=== PATIENT | male | born 1995 | race African-American/Black ===

== ENCOUNTER 2019-09-16 21:46 | Emergency (ER) | payer OTHER ==
[2019-09-16 22:04] VITALS: BP 132/82
--- NOTE | 2019-09-16 22:52 | ER Document Report ---
HPI - HPI Time Seen by Provider: 09/16/19 22:48 Pain Level: Denies Context: Patient is a 24-year-old male who presents to the emergency department with an inquiry about STD exposure. Patient states that he was seen by [facility] Ian Dill in the clinic, but has not been called back with his results. He has no worries about STD exposure, but states that he has dry skin at the tip of his penis. Denies any penile drainage. Denies any abdominal pain, dysuria, or any other symptoms. - ROS Systems Reviewed and Negative: Yes All other systems reviewed and negative - GASTROINTESTINAL Gastrointestinal: DENIES: Abdominal Pain, Nausea, Patient vomiting, Diarrhea - URINARY Urinary: DENIES: Dysuria, Urgency, Frequency - DERM Skin Color: Normal Skin Problems: None Past Medical History - Social History Smoking Status: Never Smoker Family History: Reviewed & Not Pertinent Patient has suicidal ideation: No Patient has homicidal ideation: No Vertical Provider Document - CONSTITUTIONAL Agree With Documented VS: Yes Exam Limitations: No Limitations General Appearance: No Apparent Distress - INFECTION CONTROL TRAVEL OUTSIDE OF THE [place] IN LAST 30 DAYS: No - HEENT HEENT: Atraumatic, Normocephalic, PERRLA - RESPIRATORY Respiratory: No Respiratory Distress - CARDIOVASCULAR Cardiovascular: Regular Rate, Regular Rhythm, Bradycardia Pulses: Normal: Radial - GI/ABDOMEN Gastrointestinal: Abdomen Soft, Abdomen Non-Tender - REPRODUCTIVE Male Genitalia: Normal Inspection - MUSCULOSKELETAL/EXTREMETIES Musculoskeletal/Extremeties: FROM - NEURO Level of Consciousness: Awake, Alert, Appropriate - DERM Integumentary: Warm, Dry, No Rash Course - Re-evaluation Re-evalutation: 09/16/19 22:52 BROOKS Gonzaels at bedside. No penile discharge noted. No lesions noted. At this time the patient is opting to get tested and he will come back if he needs to get treated. Follow-up precautions were given. Verbal discharge instructions were given to the patient. They verbalized understanding. They are stable for discharge. - Vital Signs Vital signs: Temp Pulse Resp BP Pulse Ox 98.1 F 50 L 16 132/82 H 100 09/16/19 21:57 09/16/19 21:57 09/16/19 21:57 09/16/19 21:57 09/16/19 21:57 Discharge - Discharge Clinical Impression: Possible exposure to STD Condition: Stable Disposition: HOME, SELF-CARE Additional Instructions: You need to use protection every time you have sex. Failure to do so can result in transmission of infections or unintended . You are being tested for STDs. You will be called if it is positive. Please return if you develop abdominal pain, fever, persistent vomiting, or any other symptoms that are concerning to you.
[2019-09-16 23:37] LABS: APPEARANCE,URINE CLEAR; BILIRUBIN,URINE NEGATIVE (NEGATIVE); COLOR,URINE YELLOW; GLUCOSE, URINE NEGATIVE (NEGATIVE); KETONES,URINE NEGATIVE (NEGATIVE); LEUKOCYTE ESTERASE,URINE NEGATIVE (NEGATIVE); NITRITE,URINE NEGATIVE (NEGATIVE); PROTEIN,URINE NEGATIVE (NEGATIVE); URINE SPECIFIC GRAVITY 1.019
[2019-09-17 01:09] LABS: CHLAM PCR NOT DETECTED (NOT DETECT)
== END 2019-09-16 23:10 | disposition home or self-care (01) ==
LOC: ER 21:46
DX: Z20.2 Contact with and (suspected) exposure to infections with a predominantly sexual mode of transmission (principal); L85.3 Xerosis cutis
CPT/HCPCS: 81001; 87491; 87591; 99283